=== PATIENT | male | born 2000 | race Caucasian/White ===

== ENCOUNTER 2019-04-09 12:43 | Emergency (ER) | payer MEDICAID ==
[~2019-04-09] VITALS: Ht 190.5 cm; Wt 68.2 kg
[~2019-04-09 12:43] MED LIST: NO HOME MEDS; TRAZ-251 PO
[2019-04-09 13:03] VITALS: BP 116/75
[2019-04-09] MEDS ORDERED: traMADol 50MG tablet PO ONE (13:30)
[2019-04-09] MEDS ORDERED: TRAM50TA2 PO (13:32)
[2019-04-09] MEDS ORDERED: CLIN-90 PO (13:32)
== END 2019-04-09 13:52 | disposition home or self-care (01) ==
LOC: ER 12:44
DX: K02.9 Dental caries, unspecified (principal); F17.200 Nicotine dependence, unspecified, uncomplicated; F32.9 Major depressive disorder, single episode, unspecified; F12.90 Cannabis use, unspecified, uncomplicated; Z88.0 Allergy status to penicillin; Z79.899 Other long term (current) drug therapy
CPT/HCPCS: 99283